=== PATIENT | female | born 2005 | race Two or more races ===

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

== ENCOUNTER → 2025-01-19 11:49 | Outpatient (REF) | payer MEDICAID, SELFPAY ==
--- OUTSIDE RECORDS SUMMARY | 2025-01-19 12:36 | XMS_ITS | Clinical Summary ---
Author Organization [facility] Address [address] [place] [address] Care Team Providers Care Car Unloader Helper Name Role Phone Yahir Howard MD Primary Care Provider [phone] Resolved Problems Problem Noted Date Diagnosed Date [...] Treatment Not on file Insurance MEDICAID OF [facility] Care Teams Car Unloader Helper Relationship Specialty Start Date End Date Yahir Howard MD [address] [place] [address] [address] [place] [place] [id number] PCP - General 03/23/22
--- OUTSIDE RECORDS SUMMARY | 2025-01-19 12:36 | XMS_ITS | Clinical Summary ---
Author Organization [facility] Address [address] [place] [address] Phone Care Team Providers Care Field Laboratory Operator Name Role Phone Yahir Howard MD Primary Care Provider Allergies No known active allergies Medications diphenhydrAMINE (BENADRYL) 25 mg tablet 1 tab po qhs prn itchiness 2 Active Active Problems Problem Noted Date Diagnosed Date Palpitations 08/16/2022 03/29/2023 Mild persistent asthma 08/31/2019 3 Attention deficit hyperactivity disorder, combin ed type 02/14/2017 12/26/2022 Adenoid hypertrophy 12/06/2016 12/26/2022 Nasal congestion 12/06/2016 03/29/2023 Overview (03/29/2023): Last Assessment & Plan: 12 year old [...] if prominent vessels seen on intraoperative exam Snoring 05/30/2016 03/29/2023 Overview (03/29/2023): Last Assessment & Plan: 12 year old [...] , wood along lips and anesthesia risks. 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 Not on aron e 10/13/2022 Are you concerned about learning? Not on file 10/13/2022 No 10/13/2022 No 10/13/2022 Digital Access Answer Date Recorded No 11/11/2022 No 11/11/2022 No 11/11/2022 Reliable internet access at home? Not on file 11/11/2022 Device with a working camera? Not on file Comments Unknown Sex and Gender Information Value Date Recorded Sex Assigned at Not on file Legal Sex Female 8:42 PM EDT Gender Identity Not on file Sexual Orientation Not on file Last Filed Vital Signs Vital Sign Reading Time Taken Comments Blood Pressure 119/78 03/29/2023 10:44 AM EDT Pulse 63 03/29/2023 10:44 AM EDT Temperature - - Respiratory Rate - - Oxygen Saturation 99% 03/29/2023 10: 44 AM EDT Inhaled Oxygen Concentration - - Weight 51.1 kg (112 lb 12.2 oz) 023 10:44 AM EDT Height 148.5 cm (4' 10.47 ) 03/29/2023 10:44 AM EDT Body Mass Index 23.19 03/29/2023 10:44 AM EDT Body Mass Index Percentile 70.99% 03/29 10:44 AM EDT Growth Chart: [facility] (Girls, 2- 20 Years) Plan of Treatment Health Maintenance Due Date Last Done Comments DEVELOPMENTAL/BEHAVIORAL SCREENING (PHQ, PSC, or SWYC) 2008 PEDIATRIC ASTHMA CONTROL TEST (ACT) 2009 DEPRESSION SCREENING 2017 SMOKING Hx and SMOKELESS TOBACCO SCREENING 2018 HPV VACCINES (1 - 3-dose series) 2020 CHLAMYDIA SCREENING 2021 MENINGOCOCCAL VACCINES (B) (1 of 2 - Standard) 2021 ADOLESCENT UNIVERSAL LIPID SCREENING 2022 HEPATITIS C SCREENING 2023 HIV ONE-TIME SCREENING (18-65 YEARS) 2023 COVID-19 VACCINE (1 - season) 2024 BMI ASSESSMENT 03/29/2024 03/29/2023 HEPATITIS B VACCINES (1 of 3 - 19+ 3-dose series) 2024 PNEUMOCOCCAL VACCINES (0-49 years) (1 of 2 - PCV) 2024 COMBINED DTaP,Tdap,Td (7 - Td or Tdap) 01/10/2027 01/10/2017, 06/16/2009, 09/11/2006, Additional history exists MMR VACCINES Completed 06/16/2009, 06/14/2006 VARICELLA VACCINES Completed 06/16/2009, 06/14/2006 HEPATITIS A VACCINES Aged Out No long er eligible based on patient's age to complete this topic HIB VACCINES Aged Out No longer eligi ble based on patient's age to complete this topic MENINGOCOCCAL VACCINES (ACWY) Aged Out No longer eligible based on patient's age to complete this topic Medical Devices Not on file [place] [address] [facility] C3 ACO C[address] [place] [address] [place] [address] C3 ACO Bart [address] C[address] [facility] Radha [address] C3 ACO [facility] C3 ACO [facility] [address] [place] [address] [place] [address] [facility] Radha [place] [id number] [facility] C3 ACO [facility] [place] [place] [address] [place] [address] C3 ACO [facility] C3 ACO Care Teams Field Laboratory Operator Relationship Specialty Start Date End Date Yahir Howard MD [address] [place] [phone] PCP - General Pediatrics 06/06/22 Additional Source Comments The information contained in this document represents components of the legal health record. It is not the complete legal health record.[facility]
--- OUTSIDE RECORDS SUMMARY | 2025-01-19 12:36 | XMS_ITS | Clinical Summary ---
Author Organization [facility] Address [address] [place] [address] Care Team Providers Care Corrosion Engineer Name Role Phone Unavailable Primary Care Provider [...] of 3 - 19+ 3-dose series) 2024 Depression Screening 06/18/2024 Influenza Vaccine (#1) 2025 HIB Vaccines Aged [...]
--- OUTSIDE RECORDS SUMMARY | 2025-01-19 12:36 | XMS_ITS | Clinical Summary ---
Author Organization [facility] Address [address] [place] [address] [address] [place] [address] Care Team Providers Care Braze Operator Name Role Phone Ashley Aquino MD Primary Care Provider [phone] Allergies Active Allergy Reactions Criticality Noted Date [...] directed 2-3x/week at bedtime 60 mL 3 025 Active betamethasone, augmented, (Diprolene) 0.05 % ointmentIndicat ions:Intrinsic atopic dermatitis Mix with 1lb jar Cerave healing ointment and apply to body BID 50 g 2 Active benzoyl peroxide 5 % gel Apply topically 2 times daily. 60 g 5 025 2025 Active methylphenidate (Ritalin) 10 MG tablet TAKE 1 TABLET BY MOUTH EVERY MORNING 30 tablet 025 Active betamethasone, augmented, (Diprolene) 0.05 % lotion [...] 4:57 PM EDT): - will refer to branch operations specialist or wellness consultant for further evaluation and treatment Nausea 05/07/2023 [...] pediatric cardiology - will request note from circulation crew leader Heart murmur 08/16/2022 Asthma 08/31/2019 Assessment & Plan (01/05/2025 11:25 AM EDT): - continue albuterol both nebulizer and inhaler prn - PFT in Mar 2024 at branch operations specialist's office, normal Assessment & Plan (10/16/2023 4:54 PM EDT): - continue albuterol both nebulizer and inhaler prn Assessment & Plan (05/07/2023 8:37 AM EST): - continue albuterol both nebulizer and inhaler prn Attention deficit hyperactivity disorder, combin ed type 02/14/2017 Assessment & Plan (10/16/2023 4:56 PM EDT): - continue current Tx plan per S - continue current medication Assessment & Plan (05/07/2023 8:35 AM EST): - continue current Tx plan per S - continue current medication Adenoid hypertrophy 12/06/2016 [...] vaseline. Atopic dermatitis 12/01/2015 Assessment & Plan (12/24/2024 5:05 PM EDT): - continue following up with Derm clinic - liberal moisturization and judicious use of topical steroid - avoid irritation Assessment & Plan (10/16/2023 4:56 PM EDT): [...] Type Department Care Team Description 12/24/2024 Refill [facility] [address] [place] [address] Ashley Aquino MD 12/23/2024 3:45 PM EDT Office Visit [address] [address] Ashley Aquino MD Intrinsic atopic dermatitis (Primary Dx); Allergic rhinitis, unspecified seasonality, unspecified trigger; Nausea; Chest pain, unspecified type; Palpitations; Mild persistent asthma without complication 12/23/2024 Travel 12/22/2024 Telephone [facility] [place] [address] Ashley Aquino MD Chart Prep 11/28/2024 Orders Only [facility] [place] [address] Ashley Aquino MD Anemia, unspecified type (Primary Dx); Routine screening for STI (sexually transmitted infection) 11/25/2024 Telephone [facility] [facility] [place] [address] Ashley Aquino MD Lab Orders from Last [...] MDCK, preservative free 05/07/2024 Influenza, Split (incl. viv fied surface antigen) 06/28/2012 MMR 06/16/2009,06/14/2006 Meningococcal [...] Done Comments Chlamydia and Gonorrhea Screening 2005 Pneumococcal Vaccine: Pediatrics (0 to 5 Years) and At-Risk Patients (6 to 49) Years (2 of 2 - PPSV23) 2011 08/01/2010, 09/11/2006, 2005, Additional history exists Fluoride Varnish 05/18/2015 11/16/2014 Family Planning (PISQ) 2020 Meningococcal B Vaccine (1 of 2 - Standard) 2021 Influenza Vaccine (#1) 2025 , 05/01/2023, 05/23/2021, Additional history exists Alcohol/Substance Use Screening 05/07/2025 05/07/2024 SDOH Screening 05/07/2025 05/07/2024 Depression Screening 12/23/2025 12/23/2024, 12/24/19 Disability Screening 12/23/2025 12/23/2024 Tobacco Screening 01/05/2026 01/05/2025 DTaP/Tdap/Td Vaccines (7 - Td or Tdap) [...] Completed 05/07/2024, 05/2022, 08/31/2021, Additional history exists HIV Screening Completed 12/24/2024 Hepatitis C Screening Completed 12/24/2024 RSV under 20 months Aged Out No longe r eligible based on patient's age to complete this topic Rotavirus Vaccines Aged Out No longer eligible based on patient's age to complete this topic Procedures Procedure Name Priority Date/Time Associated Diagnosis Comments CHLAMYDIA/TRICHOMONAS /NEISSERIA GONORRHOEAE, PCR, URINE Routine 12/25/2024 12:11 PM EDT Anemia, unspecified type HEPATITIS B SURFACE ANTIGEN, EIA Routine 12/24/2024 12:11 PM EDT Routine screening for STI (sexually transmitted infection) HIV 1/2 ANTIGEN/ANTIBODY, FOURTH GENERATION W/RFL Routine 12/24/2024 12:11 PM EDT Routine screening for STI (sexually transmitted infection) HEPATITIS C AB W/REFL TO HCV RNA, QN, PCR Routine 12/24/2024 12:11 PM EDT Routine screening for STI (sexually transmitted infection) SYPHILIS SCREEN Routine 12/24/2024 12:11 PM EDT Routine screening for STI (sexually transmitted infection) VITAMIN B12/FOLATE, SERUM PANEL Routine 12/24/2024 12:11 PM EDT Anemia, unspecified type RETICULOCYTE COUNT Routine 12/24/2024 12 :11 PM EDT Anemia, unspecified type IRON AND TOTAL IRON BINDING CAPACITY Routine 12/24/2024 12:11 PM EDT Anemia, unspecified type FERRITIN Routine 12/24/2024 12:11 PM EDT Anemia, unspecified type CBC WITH AUTO DIFFERENTIAL Routine 12/24/2024 12:11 PM EDT Anemia, unspecified type TOPICAL APPLICATION OF FLUORIDE VARNISH Routine 11/16/2014 12:00 AM EDT from Last 3 Months or Most Recently Relevant to Health Maintenance Results * Chlamydia/Trichomonas/Neisseria gonorrhoeae, PCR, Urine (12/25/2024 12:11 PM EDT) CT PCR, Urine NOT DETECTED Not Detect. [facility] Comment:A not detected test result does not exclude the possibilityof infection because test results can be affected byimproper specimen collection, concurrent antibiotic therapy,or the number of organisms in the specimen which may bebelow the sensitivity of the test. As with many diagnostictests, results from the Xpert CT/NG assay should beinterpreted in conjunction with other laboratory andclinical data available to the clinician.The Xpert CT/NG assay should not be used for the evaluationof suspected sexual abuse or for other medico-legalindications. Additional testing is recommended in anycircumstance when false positive or false negative resultscould lead to adverse medical, social or psychologicalconsequences. NG PCR, Urine NOT DETECTED Not Detect. [facility] Comment:A not detected test result does not exclude the possibilityof infection because test results can be affected byimproper specimen collection, concurrent antibiotic therapy,or the number of organisms in the specimen which may bebelow the sensitivity of the test. As with many diagnostictests, results from the Xpert CT/NG assay should beinterpreted in conjunction with other laboratory andclinical data available to the clinician.The Xpert CT/NG assay should not be used for the evaluationof suspected sexual abuse or for other medico-legalindications. Additional testing is recommended in anycircumstance when false positive or false negative resultscould lead to adverse medical, social or psychologicalconsequences. 12/25/2024 12:1 1 PM EDT 12/25/2024 12:11 PM EDT us Ashley Aquino MD LAB URINE ORDERABLES Final Resul t [facility] [address] [place] [phone] * Syphilis Screen (12/24/2024 12:11 PM EDT) Syphilis Screen Nonreactive Nonreactive [facility] Blood 12/24/2024 12:1 1 PM EDT 12/24/2024 3:58 PM EDT Ashley Aquino MD LAB BLOOD ORDERABLES Final Resul t Performing Organization Address [facility]/ZIP Co de Phone Number [facility] [address] [place] [phone] * Vitamin B12 (Cobalamin) and Folate Panel, Serum (12/24/2024 12:11 PM EDT) Vitamin B12 379 200 - 900 pg/mL [facility] Comment:NORMAL 200-900 PG/ML INDETERMINATE 160-199 PG/ML DEFICIENT < 160 PG/ML Folate 13.3 > or = 4.0 ng/mL [facility] Comment:Reference Values:> o r = 4.0 ng/mL< 4.0 ng/mL suggests folate deficiency Methotrexate, aminopterin and folinic acid(leucovorin) are chemotherapeutic agents whose molecularstructures are similar to folate; therefore, the Architectfolate assay cannot be used for patients using these drugs. Blood 12/24/2024 12:1 1 PM EDT 12/24/2024 3:58 PM EDT Ashley Aquino MD LAB BLOOD ORDERABLES Final Resul t Performing Organization Address [facility] Co de Phone Number [facility] [address] [place] [phone] [phone] * (ABNORMAL) CBC auto differential (12/24/2024 12:11 PM EDT) White Blood Count 3.1(L) 4.8 - 10.8 X10*3/uL [facility] Red Blood Count 4.51 4.20 - 5.50 X10*6/uL [facility] Hemoglobin 12.4 12.0 - 16.0 g/dl [facility] Hematocrit 38.4 37.0 - 47.0 % [facility] Mean Corpuscular Volume 85.1 80.0 - 98.0 fL [facility] Mean Corpuscular Hemoglobin 27.5 27.0 - 33.0 pg [facility] Mean Corpuscular HGB Conc 32.3 31.0 - 35.0 g/dl [facility] Red Cell Distribution Width 14.0 11.0 - 16.0 % [facility] Platelet Count 234 160 - 400 X10*3/uL [facility] Mean Platelet Volume 9.9 9.4 - 12.3 fL [facility] Neutrophils Percent Auto 44.5(L) 45 - 73 % [facility] Imm Gran Pct Auto 0.3 0.0 - 0.4 % [facility] Lymphocytes Percent Auto 35.7 20 - 40 % [facility] Monocytes Percent Auto 8.3 2 - 11 % [facility] Eosinophils Percent Auto 9.9(H) 0 - 4 % [facility] Basophils Percent Auto 1.3 0 - 2 % [facility] NRBC Pct Auto 0.0 0.0 - 0.2 /100WBC [facility] Neutrophils Absolute Auto 1.4(L) 2.0 - 8.3 x10*3/uL [facility] Imm Gran Abs Auto 0.01 0.00 - 0.03 X10*3/uL [facility] Lymphocytes Absolute Auto 1.1(L) 1.2 - 4.9 X10*3/uL [facility] Monocytes Absolute Auto 0.3 0.1 - 1.2 X10*3/uL [facility] Eosinophils Absolute Auto 0.3 0.0 - 0.4 X10*3/uL [facility] Basophils Absolute Auto 0.0 0.0 - 0.2 X10*3/uL [facility] NRBC Abs Auto 0.000 0.0 - 0.012 X10*3/uL [facility] Blood Venous blood specimen / Unknown 12/24/2024 12:11 PM EDT 12/24/2024 3:58 PM EDT us Ashley Aquino MD LAB BLOOD ORDERABLES Final Resul t Performing Organization Address [facility] Co de Phone Number [facility] [address] [place] [phone] * Hepatitis C Antibody with Reflex to HCV, RNA, Quantitative, Real-Time PCR (12/24/2024 12:11 PM EDT) Pathologist [facility] Hepatitis C Antibody Nonreactive Nonreactive [facility] Comment:Antibodies to HCV no t detected; does not exclude early acuteHCV infection. Blood Venous blood specimen / Unknown 12/24/2024 12:11 PM EDT 12/24/2024 3:58 PM EDT Ashley Aquino MD LAB BLOOD ORDERABLES Final Resul t Performing Organization Address [facility] Co de Phone Number [facility] [address] [place] [phone] * Iron And Total Iron Binding Capacity (12/24/2024 12:11 PM EDT) Iron 50 30 - 160 mcg/dL [facility] Total Iron Binding Capacity 305 228 - 428 mcg/dL [facility] Percent Iron Saturation 16 15 - 50 % [facility] Unsaturated Iron Binding 255 ug/dL [facility] Blood Venous blood specimen / Unknown 12/24/2024 12:11 PM EDT 12/24/2024 3:58 PM EDT Ashley Aquino MD LAB BLOOD ORDERABLES Final Resul t Performing Organization Address [facility] Co de Phone Number [facility] [address] [place] [phone] * Hepatitis B surface antigen, EIA (12/24/2024 12:11 PM EDT) Pathologist [facility] Hepatitis B Surface Ag Negative Negative [facility] Blood Venous blood specimen / Unknown 12/24/2024 12:11 PM EDT 12/24/2024 3:58 PM EDT us Ashley Aquino MD LAB BLOOD ORDERABLES Final Resul t Performing Organization Address [facility] Co de Phone Number [facility] [address] [place] [phone] * HIV-1/2 Antigen and Antibodies, Fourth Generation, with Reflexes (12/24/2024 12:11 PM EDT) [facility] HIV AB/AG Nonreactive Nonreactive [facility] Comment:HIV-1 p24 Ag and/or HIV-1/HIV-2 Ab not detected.A test result that is nonreactive does not exclude thepossibility of exposure to or infection with HIV-1 and/orHIV-2. Nonreactive results in this assay for individualswith prior exposure to HIV-1 and/or HIV-2 may be due toantigen and antibody levels that are below the limit ofdetection of this assay.The [employer] HIV Ag/Ab Combo assay result andsupplemental assay results should be interpreted inconjunction with the patient's clinical presentation,history and other laboratory results. If the results areinconsistent with clinical evidence, additional testing issuggested to confirm the result. Blood Venous blood specimen / Unknown 12/24/2024 12:11 PM EDT 12/24/2024 3:58 PM EDT us Ashley Aquino MD LAB BLOOD ORDERABLES Final Resul t Performing Organization Address City/[facility]/ZIP Co de Phone Number [facility] [address] [place] [phone] * Reticulocyte Count (12/24/2024 12:11 PM EDT) [facility] Reticulocytes Absolute 0.035 0.026 - 0.095 X10*6/uL [facility] Immature Retic Fraction 10.8 3.0 - 15.9 % [facility] Retic HGB Equivalent 30.5 30.0 - 35.0 pg [facility] Reticulocyte Percent 0.8 0.5 - 1.8 % [facility] Blood Venous blood specimen / Unknown 12/24/2024 12:11 PM EDT 12/24/2024 3:58 PM EDT us Ashley Aquino MD LAB BLOOD ORDERABLES Final Resul t Performing Organization Address City/[facility]/ZIP Co de Phone Number [facility] [address] [place] [phone] * Ferritin (12/24/2024 12:11 PM EDT) Ferritin 33 10 - 122 ng/mL [facility] Blood Venous blood specimen / Unknown 12/24/2024 12:11 PM EDT 12/24/2024 3:58 PM EDT us Ashley Aquino MD LAB BLOOD ORDERABLES Final Resul t Performing Organization Address City/[facility]/ZIP Co de Phone Number [facility] [address] [place] [phone] from Last 3 Months Insurance [employer] C[employer] C3 [facility] C3 Care Teams Braze Operator Relationship Specialty Start Date End Date Ashley Aquino MD [address] [place] [phone] PCP - General Family Medicine 03/27/23
== END ==
LOC: HO.CARD 11:49
PROVIDERS: Visit Provider Family Medicine
DX: R00.2 Palpitations (principal); R07.9 Chest pain, unspecified
CPT/HCPCS: 93225

== ENCOUNTER → 2025-05-25 11:10 | Outpatient (REF) | payer MEDICAID, SELFPAY | LOC: HO.CARD 11:10 | PROVIDERS: PCP Family Medicine; Visit Provider Family Medicine | DX: R00.2 Palpitations (principal); R07.9 Chest pain, unspecified | CPT/HCPCS: 93225 ==

== ENCOUNTER → 2025-05-25 11:17 | Outpatient (BNV) | payer MEDICAID, SELFPAY | PROVIDERS: PCP Family Medicine; Visit Provider Internal Medicine | DX: R07.9 Chest pain, unspecified (principal) | CPT/HCPCS: 93227 ==

== ENCOUNTER 2025-06-01 15:59 | Outpatient (REF) | payer MEDICAID, SELFPAY ==
[2025-06-01 18:21] LABS: MANUAL DIFF FLAG NO
[2025-06-01 18:29] LABS: Hematocrit 36.6 % (37.0-47.0); Hemoglobin 11.9 g/dl (12.0-16.0); Imm Gran Abs Auto 0.01 X10*3/uL (0.00-0.03); Imm Gran Pct Auto 0.2 % (0.0-0.4); Lymphocytes Absolute Auto 1.7 X10*3/uL (1.2-4.9); Mean Corpuscular HGB Conc 32.5 g/dl (31.0-35.0); Mean Corpuscular Hemoglobin 27.5 pg (27.0-33.0); Mean Corpuscular Volume 84.7 fL (80.0-98.0); NRBC Abs Auto 0.000 X10*3/uL (0.0-0.012); NRBC Pct Auto 0.0 /100WBC (0.0-0.2); Platelet Count 258 X10*3/uL (160-400); Red Blood Count 4.32 X10*6/uL (4.20-5.50); White Blood Count 5.0 X10*3/uL (4.8-10.8)
--- OUTSIDE RECORDS SUMMARY | 2025-06-01 22:20 | XMS_ITS | Clinical Summary ---
Author Organization [facility]'s Address [address] [id number] Care Team Providers Care Liquid Hydrogen Plant Operator Name Role Phone Yahir Howard MD Primary Care Provider [phone] Resolved Problems Problem Noted Date Diagnosed Date [...] Treatment Not on file Insurance MEDICAID OF [facility] Care Teams Liquid Hydrogen Plant Operator Relationship Specialty Start Date End Date Yahir Howard MD [address] [place] [address] [address] [place] [address] PCP - General 03/23/22
--- OUTSIDE RECORDS SUMMARY | 2025-06-01 22:20 | XMS_ITS | Clinical Summary ---
Author Organization [facility] ity Address [address] [place] [address] Care Team Providers Care Data Virtualization Consultant Name Role Phone Unavailable Primary Care Provider [...] (1 o f 2 - Standard) 2021 DTaP,Tdap,and Td Vaccines (1 - Tdap) 2024 Hepatitis B Vaccines (1 of 3 - 19+ 3-dose series) 2024 Depression Screening 06/18/2024 COVID-19 Vaccine (1 - 2024-2 6 season) 2025 Influenza Vaccine (#1) 2025 RSV Immunization Adult Patie nts (1 - 1-dose 75+ series) 2080 HIB Vaccines Aged Out No longer eligi [...]
--- OUTSIDE RECORDS SUMMARY | 2025-06-01 22:20 | XMS_ITS | Encounter Summary ---
Author Organization [facility] Address [address] [place] [address] Phone Care Team Providers Care Monorail Crane Operator Name Role Phone Yahir Howard MD Primary Care Provider [phone] Encounter Details Date Type Department Care Team ([facility] st Contact Info) Description 03/29/2023 Procedure Pass [facility] at [place] [address] [place] [address] Social History Tobacco Use Types Packs/Day Years [...] on file Sexual Orientation Not on file documented as of this encounter Plan of Treatment Not on file documented as of this encounter Visit Diagnoses Not on filedocumented in this encounter Care Teams Monorail Crane Operator Relationship Specialty Start Date End Date Yahir Howard MD [address] [place] [phone] PCP - General Pediatrics 06/06/22 documented as of this encounter Additional Source Comments The information contained in this document represents components of the legal health record. It is not the complete legal health record.[facility]
--- OUTSIDE RECORDS SUMMARY | 2025-06-01 22:20 | XMS_ITS | Encounter Summary ---
Author Organization [facility] Address [address] [place] [address] Phone Care Team Providers Care Underwriting Support Manager Name Role Phone Yahir Howard MD Primary Care Provider [phone] Encounter Details Date Type Department Care Team (Late st Contact Info) Description 12/26/2022 Procedure Pass [facility] at [place] [address] [place] [address] Social History Tobacco Use Types Packs/Day Years [...] on filedocumented in this encounter Care Teams Underwriting Support Manager Relationship Specialty Start Date End Date Yahir Howard MD [address] [place] [phone] PCP - General Pediatrics 06/06/22 documented as of this encounter Additional Source Comments The information contained in this document represents components of the legal health record. It is not the complete legal health record.[facility]
--- OUTSIDE RECORDS SUMMARY | 2025-06-01 22:20 | XMS_ITS | Clinical Summary ---
Author Organization [facility] Address [address] [place] [address] Phone Care Team Providers Care Multineedle Shirrer Name Role Phone Yahir Howard MD Primary [...] 70.99% 03/29 10:44 AM EDT Growth Chart: [facility] (Girls, 2- 20 Years) Plan of Treatment [...] 2023 HIV ONE-TIME SCREENING (18-65 YEARS) 2023 BMI ASSESSMENT 03/29/2024 03/29/2023 HEPATITIS B VACCINES (1 of 3 - 19+ 3-dose series) 2024 PNEUMOCOCCAL VACCINES (0-49 years) (1 of 2 - PCV) 2024 INFLUENZA VACCINE (#1) 2025 COVID-19 VACCINE (1 - 2024- season) 2025 COMBINED DTaP,Tdap,Td (7 - Td or Tdap) [...] topic Medical Devices Not on file Insurance [facility] C3 ACO [facility] Radha Wagner [address] [employer] [place] [address] [facility] [place] [address] [facility] [employer]3 [employer]CO [facility] C3 ACO [facility] [place] [address] [facility] [employer]CO [facility]3 [employer] [facility] [place] [address] [facility] [employer]3 [employer] [address] [place] [address] [address] [place] [address] C3 ACO Care Teams Multineedle Shirrer Relationship Specialty Start Date End Date Yahir Howard MD [address] [place] [id number] PCP - General Pediatrics 06/06/22 Additional Source Comments The information contained in this document represents components of the legal health record. It is not the complete legal health record.[facility]
== END 2025-06-01 16:00 | disposition home or self-care (01) ==
LOC: HO.HHCL 15:59
PROVIDERS: PCP Family Medicine; Visit Provider Family Medicine
DX: D72.819 Decreased white blood cell count, unspecified (principal)
CPT/HCPCS: 36415; 85025